=== PATIENT | male | born 1965 | race Caucasian/White ===

== ENCOUNTER 2022-05-16 19:17 | Emergency (ER) | payer BC ==
[2022-05-16] MEDS ORDERED: INDO50 PO (20:08)
[2022-05-16] MEDS ORDERED: LOSA50 PO (20:08)
[2022-05-16] MEDS ORDERED: SERT50 PO (20:09)
[2022-05-16] MEDS ORDERED: ALLO100 PO (20:09)
[2022-05-16] MEDS ORDERED: ATOR20 PO (20:09)
[2022-05-16] MEDS ORDERED: ONDA4ODT MM (22:09)
== END 2022-05-16 22:33 | disposition home or self-care (01) ==
DX: J10.1 Influenza due to other identified influenza virus with other respiratory manifestations (principal); Z20.822 Contact with and (suspected) exposure to COVID-19; Z79.899 Other long term (current) drug therapy

== ENCOUNTER 2022-12-26 13:46 | Day surgery (SDC) | payer BC ==
[~2022-12-26] VITALS: Ht 175.3 cm; Wt 121.0 kg
[~2022-12-26 13:46] MED LIST: ALLO100 PO; ATOR20 PO; INDO50 PO; LOSA50 PO; ONDA4ODT MM; SERT50 PO
== END 2022-12-26 15:57 | disposition home or self-care (01) ==
LOC: ORSCSDS 13:46
PROVIDERS: Internal Medicine Gastroenterology
PROC: 0DBL8ZX Excision of Transverse Colon, Via Natural or Artificial Opening Endoscopic, Diagnostic (ICD-10-PCS; principal; 2022-12-26 15:15)
PROC: 0DBH8ZX Excision of Cecum, Via Natural or Artificial Opening Endoscopic, Diagnostic (ICD-10-PCS; principal; 2022-12-26 15:15)
PROC: 0DBN8ZX Excision of Sigmoid Colon, Via Natural or Artificial Opening Endoscopic, Diagnostic (ICD-10-PCS; principal; 2022-12-26 15:15)
PROC: 0DBM8ZX Excision of Descending Colon, Via Natural or Artificial Opening Endoscopic, Diagnostic (ICD-10-PCS; principal; 2022-12-26 15:15)
DX: Z12.11 Encounter for screening for malignant neoplasm of colon (principal); Z86.010 Personal history of colon polyps; D12.0 Benign neoplasm of cecum; D12.3 Benign neoplasm of transverse colon; D12.4 Benign neoplasm of descending colon; K63.5 Polyp of colon; K57.30 Diverticulosis of large intestine without perforation or abscess without bleeding; K64.8 Other hemorrhoids; I10 Essential (primary) hypertension; E78.5 Hyperlipidemia, unspecified; Z79.899 Other long term (current) drug therapy; E66.9 Obesity, unspecified; Z68.39 Body mass index [BMI] 39.0-39.9, adult; G47.33 Obstructive sleep apnea (adult) (pediatric); R73.03 Prediabetes
CPT/HCPCS: 82947; 88305; J0461; J2001; J2405; J2704; J7120; Q9968